=== PATIENT | female | born 1945 | race Caucasian/White ===

== ENCOUNTER 2017-10-10 05:24 | Day surgery (SDC) | payer OTHER ==
[~2017-10-10] VITALS: Ht 157.5 cm; Wt 68.0 kg
--- NOTE | ~2017-10-10 | O ---
[facility] [place] [address] OPERATIVE REPORT Name: ERNST FREEDMAN Room #: DEP [facility] M.R.#: [id number] Admission: 10/10/17 Attend Phys: Duncan Obrien MD Discharge: 10/10/17 Date of : 43 Report #: [id number] THIS REPORT FOR: //name// CC: Duncan Felixm Akkulugari DATE OF SERVICE: 10/10/2017 PREOPERATIVE DIAGNOSIS: Right knee superficial frostbite with purulence. POSTOPERATIVE DIAGNOSIS: Right knee superficial frostbite with purulence. PROCEDURE: Debridement and irrigation of right knee frostbite wound down to the fascia with placement of wound VAC with a final wound size of 7 x 7 cm. SURGEON: Duncan Obrien MD [facility] NURSE: Luz Gill PA-C. ANESTHESIA: LMA. COMPLICATIONS: None. SPECIMENS: None. CONDITION UPON LEAVING THE OPERATING ROOM: Stable. INDICATIONS FOR PROCEDURE: The patient is a 72-year-old female who has frostbite of bilateral knees. She presented to my clinic earlier this week with purulent drainage from her right knee with a large eschar and a foul smelling wound. It was felt that there could possibly be a deep infection of the knee and was in need of debridement and irrigation. DESCRIPTION OF PROCEDURE: Risks, benefits, alternatives and complications were discussed in detail with the patient including but not limited to risk of anesthesia, risk of damage to nerves, arteries, blood vessels, risk for infection, bleeding, risk for continued knee pain, failure of procedure and need for further debridement. Informed consent was obtained from the patient. The right knee was appropriately marked in the preoperative holding area. IV Ancef was given for preoperative antibiotics. She was brought to the operating room and placed in the supine position on the operating room table. LMA anesthesia was induced without complication. Tourniquet was placed on the right thigh. Right lower extremity was prepped and draped in normal sterile fashion. Timeout was performed properly identifying the patient and procedure as well as the instrumentation. All in the operating room were in agreement. The eschar over the knee was then removed sharply with a 10 blade and there was hypertrophic [address] [address] OPERATIVE REPORT Name: ERNST FREEDMAN Room #: DEP [facility] M.Edgardo.#: [id number] Admission: 10/10/17 Attend Phys: Duncan Obrien MD Discharge: 10/10/17 Date of : 43 Report #: [id number] granulation tissue surrounding the knee itself with exposed fascia covering the patella. This wound was explored deeply and found to be fairly superficial with no communication to the knee joint itself and really did not undermine more than the depth of a fingertip. The granulation tissue was then debrided with the curette and there was excellent bleeding tissue surrounding this area. This was then thoroughly irrigated with normal saline and pulse lavage and a small wound VAC was then placed. The final size of the wound was approximately 7 x 7 cm. She was then awoken from anesthesia and went to the recovery room under the care of anesthesia postoperatively. <ELECTRONICALLY SIGNED> By: Duncan Obrien MD 10/27/17 1351 [id number] Duncan Obrien MD /nt
[~2017-10-10 05:24] MED LIST: ATROVENT HFA14 GM INH; ENOXAPARIN40 MG/0.1 SUBQ; HYDROCODON-ACE1 EAC7 PO; TYLENOL325 MG PO; VENTOLIN HFA 1818 GM INH
[2017-10-10 07:03] VITALS: BP 136/75
== END 2017-10-10 09:25 ==
LOC: OR 05:24 → TBA 05:25 → OR 07:30
DX: T33.71XA Superficial frostbite of right knee and lower leg, initial encounter (principal); L08.9 Local infection of the skin and subcutaneous tissue, unspecified; S81.001A Unspecified open wound, right knee, initial encounter; X58.XXXA Exposure to other specified factors, initial encounter; Y93.89 Activity, other specified; Y92.89 Other specified places as the place of occurrence of the external cause; Y99.8 Other external cause status; Z79.891 Long term (current) use of opiate analgesic
CPT/HCPCS: 50010; 50101; 50386; 50643; 53078; 57091; 62110; 62900; 70005